=== PATIENT | female | born 1955 | race Caucasian/White ===

== ENCOUNTER → 2019-11-14 | Outpatient (CLI) | payer BC | END | disposition home or self-care (01) | CPT/HCPCS: 71270; Q9967 ==

== ENCOUNTER 2020-03-16 09:02 | Emergency (ER) | payer BC ==
--- NOTE | 2020-03-16 09:13 | ED ---
General Adult HPI - General Chief complaint: Extremity Problem,Nontraumatic Stated complaint: FB in foot Time Seen by Provider: 03/16/20 09:05 Source: patient, RN notes reviewed, old records reviewed Mode of arrival: ambulatory Limitations: no limitations - History of Present Illness Initial comments: This is a 65-year-old female who presents emergency department today thinking she has a foreign body in her first right toe patient states that she stepped on a needle today she thinks there may be a piece of the needle still in her toe. Patient states she had a tetanus shot within the last 2 years. Patient denies any other injury. - Related Data Home Medications Medication Instructions Recorded Confirmed Baclofen [Lioresal] 20 mg PO QID 06/05/15 03/16/20 Levothyroxine Sodium [Synthroid] 88 mcg PO DAILY 06/05/15 03/16/20 Lovastatin [Mevacor] 20 mg PO HS 06/05/15 03/16/20 Metoprolol Succinate (ER) [Toprol 100 mg PO HS 06/05/15 03/16/20 XL] Spironolactone 50 mg PO QAM 06/05/15 03/16/20 sulfaSALAzine [Azulfidine] 1,000 mg PO BID 06/05/15 03/16/20 Albuterol Sulfate [Ventolin HFA] 2 puff INHALATION RT-Q6H PRN 03/16/20 03/16/20 Budesonide/Formoterol Fumarate 2 puff INHALATION RT-BID 03/16/20 03/16/20 [Symbicort 160-4.5 Mcg Inhaler] Etanercept [Enbrel] 50 mg SQ FR 03/16/20 03/16/20 Losartan [Cozaar] 100 mg PO DAILY 03/16/20 03/16/20 Meloxicam [Mobic] 15 mg PO DAILY 03/16/20 03/16/20 Prednisolone Acetate/Pf 1 drop BOTH EYES DAILY PRN 03/16/20 03/16/20 [Prednisolone Acet 1% Eye Drop] SUMAtriptan SUCCINATE [Imitrex] 100 mg PO DAILY PRN 03/16/20 03/16/20 amLODIPine [Norvasc] 10 mg PO DAILY 03/16/20 03/16/20 Previous Rx's Medication Instructions Recorded Cephalexin [Keflex] 500 mg PO Q6HR #28 cap 03/16/20 Allergies Allergy/AdvReac Type Severity Reaction Status Date / Time antidepressants AdvReac seizures Uncoded 03/16/20 09:59 antiseizure meds AdvReac seizure Uncoded 03/16/20 09:59 Review of Systems ROS Statement: Those systems with pertinent positive or pertinent negative responses have been documented in the HPI. ROS Other: All systems not noted in ROS Statement are negative. Past Medical History Past Medical History: Asthma, Hyperlipidemia, Hypertension, Thyroid Disorder Additional Past Medical History / Comment(s): RECTAL BLEEDING, ANKYLOSING SPONDYLITIS, TRIGEMINAL NEURALGIA History of Any Multi-Drug Resistant Organisms: None Reported Past Surgical History: Orthopedic Surgery Additional Past Surgical History / Comment(s): FOOT SX Past Anesthesia/Blood Transfusion Reactions: No Reported Reaction Past Psychological History: No Psychological Hx Reported Smoking Status: Never smoker Past Alcohol Use History: Occasional Past Drug Use History: None Reported - Past Family History Mother Family Medical History: No Reported History General Exam - General Exam Comments Initial Comments: GENERAL Patient is well-developed and well-nourished. Patient is in mild distress. EYES Patient's pupils are equal and round. Extraocular motion is intact SKIN Unremarkable NEURO The patient is alert and oriented 3 PYSCH Patient has normal interpersonal interactions. MUSCULOSKELETAL Patient has a small puncture wound in the base of the plantar surface of the first right toe no foreign body can be seen Limitations: no limitations Course Vital Signs 03/16/20 09:05 Temperature 98.5 F Pulse Rate 63 Respiratory 20 Rate Blood Pressure 178/80 O2 Sat by Pulse 99 Oximetry Medical Decision Making - Medical Decision Making X-ray shows a foreign body. Looks like a needle. I numbed the patient's toe with 1% Xylocaine and immediately small incision and probed for the needle I was unsuccessful. I repeated his x-ray to see if the needle have moved it had not and at this point in time I made a decision to not probe any further because I had no success earlier. The patient's toe was wrapped up with some air saturation applied and she will follow-up with orthopedics. Disposition Clinical Impression: Foreign body of toe Disposition: HOME SELF-CARE Condition: Good Instructions (If sedation given, give patient instructions): Soft Tissue Foreign Body (ED) Prescriptions: Cephalexin [Keflex] 500 mg PO Q6HR #28 cap Is patient prescribed a controlled substance at d/c from ED?: No Referrals: Adonay Cervantes MD [Primary Care Provider] - 1-2 days Time of Disposition: 11:21
[2020-03-16] MEDS ORDERED: LIDOCAINE 1% INJ 10MG/ML (20 ML MDV) SQ ONE (09:54)
--- NOTE | 2020-03-16 10:06 | XR ---
EXAMINATION TYPE: XR toes RT DATE OF EXAM: 03/16/2020 COMPARISON: NONE HISTORY: Foreign body TECHNIQUE: 4 views of the soft tissues of the right great toe are submitted. FINDINGS: Metallic sewing needle foreign body is seen within the plantar soft tissues of the right gr eat toe. Distance from the skin is 3 mm. Informed body measures 2 cm in length. Severe degenerative c hange first metatarsophalangeal joint. IMPRESSION: Foreign body as above.
--- NOTE | 2020-03-16 11:05 | XR ---
EXAMINATION TYPE: XR toes RT DATE OF EXAM: 03/16/2020 COMPARISON: Examination from the same day. HISTORY: Radiopaque foreign body TECHNIQUE: 2 views of the great toe are submitted. FINDINGS: Radiopaque foreign body as described previously appears essentially unchanged. IMPRESSION: As above
[2020-03-16 11:38] VITALS: BP 145/63; PULSE 61; RESP 18; TEMP 97.8
== END 2020-03-16 11:35 | disposition home or self-care (01) ==
LOC: EC 09:02
DX: S91.131A Puncture wound without foreign body of right great toe without damage to nail, initial encounter (principal); J45.909 Unspecified asthma, uncomplicated; I10 Essential (primary) hypertension; E78.5 Hyperlipidemia, unspecified; E07.9 Disorder of thyroid, unspecified; Z79.890 Hormone replacement therapy; Z79.899 Other long term (current) drug therapy; Z79.51 Long term (current) use of inhaled steroids; Z79.1 Long term (current) use of non-steroidal anti-inflammatories (NSAID); Z88.8 Allergy status to other drugs, medicaments and biological substances; W45.8XXA Other foreign body or object entering through skin, initial encounter
CPT/HCPCS: 73660; 99284; 10120; J2001

== ENCOUNTER 2020-03-17 20:10 | Emergency (ER) | payer BC ==
[2020-03-17 20:32] VITALS: BP 189/75; PULSE 72; RESP 20; TEMP 98.6
[2020-03-17] MEDS ORDERED: KETOROLAC 30 MG/ML 1 ML VIAL IM STA (21:20)
[2020-03-17] MEDS ORDERED: HYDROcodone/APAP 5-325MG 1 EACH TAB PO STA (21:20)
[2020-03-17] MEDS ORDERED: ACET/COD 300 MG/30 MG STARTER PACK 6 TAB BTL PO STA (21:26)
--- NOTE | 2020-03-17 21:27 | ED ---
Skin/Abscess/FB HPI - General Chief complaint: Skin/Abscess/Foreign Body Stated complaint: foreign body in toe Time Seen by Provider: 03/17/20 21:12 Source: patient, family Mode of arrival: ambulatory Limitations: no limitations - History of Present Illness Initial comments: 65-year-old female patient presents to the emergency department today for evalua tion of her right great toe. Patient states yesterday morning she stepped on a needle which broke off in her toe. She was seen and evaluated in the emergency department by Dr. Bañuelos who did create a small incision and attempted to probe for the needle. He was unsuccessful removal so he did start her on antibiotics and discharged to follow-up with orthopedics. Patient states today the area is more swollen and painful. States it hurts to ambulate. She denies fever but states that she has been shaky and chilled throughout the day. States she feels unwell. Denies any numbness or tingling to the foot or toe. Patient denies any headache, neck pain, back pain, chest pain, shortness of breath, dizziness, weakness, abdominal pain, nausea, vomiting, or difficulties with bowel movements or urination. - Related Data Home Medications Medication Instructions Recorded Confirmed Baclofen [Lioresal] 20 mg PO QID 06/05/15 03/16/20 Levothyroxine Sodium [Synthroid] 88 mcg PO DAILY 06/05/15 03/16/20 Lovastatin [Mevacor] 20 mg PO HS 06/05/15 03/16/20 Metoprolol Succinate (ER) [Toprol 100 mg PO HS 06/05/15 03/16/20 XL] Spironolactone 50 mg PO QAM 06/05/15 03/16/20 sulfaSALAzine [Azulfidine] 1,000 mg PO BID 06/05/15 03/16/20 Albuterol Sulfate [Ventolin HFA] 2 puff INHALATION RT-Q6H PRN 03/16/20 03/16/20 Budesonide/Formoterol Fumarate 2 puff INHALATION RT-BID 03/16/20 03/16/20 [Symbicort 160-4.5 Mcg Inhaler] Etanercept [Enbrel] 50 mg SQ FR 03/16/20 03/16/20 Losartan [Cozaar] 100 mg PO DAILY 03/16/20 03/16/20 Meloxicam [Mobic] 15 mg PO DAILY 03/16/20 03/16/20 Prednisolone Acetate/Pf 1 drop BOTH EYES DAILY PRN 03/16/20 03/16/20 [Prednisolone Acet 1% Eye Drop] SUMAtriptan SUCCINATE [Imitrex] 100 mg PO DAILY PRN 03/16/20 03/16/20 amLODIPine [Norvasc] 10 mg PO DAILY 03/16/20 03/16/20 Previous Rx's Medication Instructions Recorded Cephalexin [Keflex] 500 mg PO Q6HR #28 cap 03/16/20 Allergies Allergy/AdvReac Type Severity Reaction Status Date / Time antidepressants AdvReac seizures Uncoded 03/17/20 20:32 antiseizure meds AdvReac seizure Uncoded 03/17/20 20:32 Review of Systems ROS Statement: Those systems with pertinent positive or pertinent negative responses have been documented in the HPI. ROS Other: All systems not noted in ROS Statement are negative. Past Medical History Past Medical History: Asthma, Hyperlipidemia, Hypertension, Thyroid Disorder Additional Past Medical History / Comment(s): RECTAL BLEEDING, ANKYLOSING SPONDYLITIS, TRIGEMINAL NEURALGIA History of Any Multi-Drug Resistant Organisms: None Reported Past Surgical History: Orthopedic Surgery Additional Past Surgical History / Comment(s): FOOT SX Past Anesthesia/Blood Transfusion Reactions: No Reported Reaction Past Psychological History: No Psychological Hx Reported Smoking Status: Never smoker Past Alcohol Use History: Occasional Past Drug Use History: None Reported - Past Family History Mother Family Medical History: No Reported History General Exam Limitations: no limitations General appearance: alert, in no apparent distress, other (This is a well- developed, well-nourished adult female patient in no acute distress. Vital signs upon presentation are temperature 98.6F, pulse 72, respirations 20, blood pressure 189/75, pulse ox 98% on room air.) Respiratory exam: Present: normal lung sounds bilaterally. Absent: respiratory distress, wheezes, rales, rhonchi, stridor Cardiovascular Exam: Present: regular rate, normal rhythm, normal heart sounds. Absent: systolic murmur, diastolic murmur, rubs, gallop, clicks Extremities exam: Present: full ROM, normal capillary refill, other (There is generalized swelling noted over the right great toe. There is a small incision noted to the plantar surface of the right great toe near the MTP joint. There is no surrounding erythema or drainage noted at this time. Temperature is equal to the left foot. Skin is otherwise pink, warm, dry. Cap refills less than 3 seconds. Pedal and posttibial pulses are 2+ and equal bilaterally.). Absent: normal inspection, tenderness, pedal edema, joint swelling, calf tenderness Neurological exam: Present: alert, oriented X3, CN II-XII intact Psychiatric exam: Present: normal affect, normal mood Skin exam: Present: warm, dry, intact, normal color. Absent: rash Course Vital Signs 03/17/20 20:28 Temperature 98.6 F Pulse Rate 72 Respiratory 20 Rate Blood Pressure 189/75 O2 Sat by Pulse 98 Oximetry Medical Decision Making - Medical Decision Making 65-year-old female patient presents to the emergency department today for evaluation of increased pain and swelling to the right great toe. Patient does have a needle foreign body noted on x-ray to the toe. There is no redness or drainage. She is afebrile. She is currently taking Keflex. Patient was hoping she did have the needle removed in the emergency department. I did explain that there was one previous attempt to remove the needle which was unsuccessful. Generally we would have follow-up with orthopedic specialty to evaluate and remove the foreign body. She is given pain medication and a post op shoe for comfort. She will be discharged to follow up with ortho on Thursday. She is instructed to continue the antibiotics. Return parameters were discussed in detail. She verbalizes understanding and agrees with this plan. Disposition Clinical Impression: Foreign body of skin of right great toe Disposition: HOME SELF-CARE Condition: Good Instructions (If sedation given, give patient instructions): Soft Tissue Foreign Body (ED) Additional Instructions: Continue antibiotics. Take medications for pain. Follow-up with migration specialist as soon as possible for further evaluation. Return to the emergency department immediately for any new, worsening, or concerning symptoms. Is patient prescribed a controlled substance at d/c from ED?: No Referrals: Adonay Cervantes MD [Primary Care Provider] - 1-2 days Luiz Zelaya MD [STAFF PHYSICIAN] - 1-2 days Time of Disposition: 21:27
== END 2020-03-17 21:46 | disposition home or self-care (01) ==
LOC: EC 20:10
DX: M79.5 Residual foreign body in soft tissue (principal); J45.909 Unspecified asthma, uncomplicated; E78.5 Hyperlipidemia, unspecified; I10 Essential (primary) hypertension; E07.9 Disorder of thyroid, unspecified; G50.0 Trigeminal neuralgia; Z79.51 Long term (current) use of inhaled steroids; Z79.890 Hormone replacement therapy; Z79.899 Other long term (current) drug therapy; Z79.1 Long term (current) use of non-steroidal anti-inflammatories (NSAID); Z88.8 Allergy status to other drugs, medicaments and biological substances
CPT/HCPCS: 96372; 99283; J1885

== ENCOUNTER 2020-11-12 01:45 | Emergency (ER) | payer BC ==
[2020-11-12 01:57] VITALS: TEMP 98.5
--- NOTE | 2020-11-12 02:57 | ED ---
Seizure HPI - General Chief Complaint: Seizure Stated Complaint: Seizure Time Seen by Provider: 11/12/20 02:37 Source: patient Mode of arrival: wheelchair Limitations: no limitations - History of Present Illness Initial Comments: 's patient is a 65-year-old woman who presents to be evaluated for which she suspects are seizures she is having. The patient states that the past 3 nights she has been having episodes of shaking that are lasting approximately 30 seconds as she is attempting to go to sleep. She complains of bilateral extremity shaking. The patient is aware of the episodes. There is no loss of consciousness, no loss of continence. The patient had been started on Leflunomide for , but did not tolerate that medication and was subsequently stopped. The patient's physician did give her cholestyramine to help purge her system of this medication. She states the cholestyramine has been causing a little bit of bloating. Patient notes that she had similar side effects with some anticonvulsant medicines that had been tried a number of years ago for trigeminal neuralgia. MD Complaint: possible seizure Onset/Timin -: days(s) - Related Data Home Medications Medication Instructions Recorded Confirmed Baclofen [Lioresal] 20 mg PO QID 06/05/15 03/16/20 Levothyroxine Sodium [Synthroid] 88 mcg PO DAILY 06/05/15 03/16/20 Lovastatin [Mevacor] 20 mg PO HS 06/05/15 03/16/20 Metoprolol Succinate (ER) [Toprol 100 mg PO HS 06/05/15 03/16/20 XL] Spironolactone 50 mg PO QAM 06/05/15 03/16/20 sulfaSALAzine [Azulfidine] 1,000 mg PO BID 06/05/15 03/16/20 Albuterol Sulfate [Ventolin HFA] 2 puff INHALATION RT-Q6H PRN 03/16/20 03/16/20 Budesonide/Formoterol Fumarate 2 puff INHALATION RT-BID 03/16/20 03/16/20 [Symbicort 160-4.5 Mcg Inhaler] Etanercept [Enbrel] 50 mg SQ FR 03/16/20 03/16/20 Losartan [Cozaar] 100 mg PO DAILY 03/16/20 03/16/20 Meloxicam [Mobic] 15 mg PO DAILY 03/16/20 03/16/20 Prednisolone Acetate/Pf 1 drop BOTH EYES DAILY PRN 03/16/20 03/16/20 [Prednisolone Acet 1% Eye Drop] SUMAtriptan SUCCINATE [Imitrex] 100 mg PO DAILY PRN 03/16/20 03/16/20 amLODIPine [Norvasc] 10 mg PO DAILY 03/16/20 03/16/20 Previous Rx's Medication Instructions Recorded Cephalexin [Keflex] 500 mg PO Q6HR #28 cap 03/16/20 diazePAM [Valium] 5 mg PO Q8HR PRN 3 Days #9 tab 11/12/20 Allergies Allergy/AdvReac Type Severity Reaction Status Date / Time antidepressants AdvReac seizures Uncoded 03/17/20 20:32 antiseizure meds AdvReac seizure Uncoded 03/17/20 20:32 Review of Systems ROS Statement: Those systems with pertinent positive or pertinent negative responses have been documented in the HPI. ROS Other: All systems not noted in ROS Statement are negative. Constitutional: Denies: fever, chills Respiratory: Denies: cough, dyspnea Cardiovascular: Denies: chest pain, palpitations Gastrointestinal: Denies: abdominal pain, vomiting, diarrhea, constipation Genitourinary: Denies: dysuria, hematuria Musculoskeletal: Denies: back pain Skin: Denies: rash Neurological: Reports: as per HPI, other. Denies: headache, weakness, numbness Past Medical History Past Medical History: Asthma, Hyperlipidemia, Hypertension, Thyroid Disorder Additional Past Medical History / Comment(s): RECTAL BLEEDING, ANKYLOSING SPONDYLITIS, TRIGEMINAL NEURALGIA History of Any Multi-Drug Resistant Organisms: None Reported Past Surgical History: Orthopedic Surgery Additional Past Surgical History / Comment(s): FOOT SX Past Anesthesia/Blood Transfusion Reactions: No Reported Reaction Past Psychological History: No Psychological Hx Reported Smoking Status: Never smoker Past Alcohol Use History: Occasional Past Drug Use History: None Reported - Past Family History Mother Family Medical History: No Reported History General Exam Limitations: no limitations General appearance: alert, in no apparent distress Head exam: Present: atraumatic, normocephalic Eye exam: Present: normal appearance. Absent: scleral icterus, conjunctival injection ENT exam: Present: normal oropharynx Neck exam: Present: normal inspection, full ROM. Absent: tenderness, meningismus, lymphadenopathy Respiratory exam: Present: normal lung sounds bilaterally. Absent: respiratory distress, wheezes, rales, rhonchi, stridor Cardiovascular Exam: Present: regular rate, normal rhythm, normal heart sounds. Absent: systolic murmur, diastolic murmur, rubs, gallop GI/Abdominal exam: Present: soft. Absent: distended, tenderness, guarding, rebound, rigid, mass Extremities exam: Present: normal inspection, normal capillary refill. Absent: pedal edema, calf tenderness Back exam: Present: normal inspection. Absent: CVA tenderness (R), CVA tenderness (L) Neurological exam: Present: alert, oriented X3, CN II-XII intact. Absent: motor sensory deficit Skin exam: Present: warm, dry, intact, normal color. Absent: rash Course Vital Signs 11/12/20 11/12/20 11/12/20 01:52 03:14 04:14 Temperature 98.5 F Pulse Rate 66 62 63 Respiratory 18 20 18 Rate Blood Pressure 188/84 164/91 144/75 O2 Sat by Pulse 99 97 97 Oximetry Medical Decision Making - Lab Data Result diagrams: 11/12/20 02:44 11/12/20 02:44 Lab Results 11/12/20 11/12/20 11/12/20 Range/Units 02:44 02:44 02:44 WBC 7.4 (3.8-10.6) k/uL RBC 4.76 (3.80-5.40) m/uL Hgb 15.0 (11.4-16.0) gm/dL Hct 43.5 (34.0-46.0) % MCV 91.4 (80.0-100.0) fL MCH 31.5 (25.0-35.0) pg MCHC 34.5 (31.0-37.0) g/dL RDW 11.8 (11.5-15.5) % Plt Count 187 (150-450) k/uL MPV 7.3 Neutrophils % 39 % Lymphocytes % 46 % Monocytes % 9 % Eosinophils % 2 % Basophils % 1 % Neutrophils # 2.9 (1.3-7.7) k/uL Lymphocytes # 3.4 (1.0-4.8) k/uL Monocytes # 0.7 (0-1.0) k/uL Eosinophils # 0.1 (0-0.7) k/uL Basophils # 0.1 (0-0.2) k/uL Sodium 139 (137-145) mmol/L Potassium 4.3 (3.5-5.1) mmol/L Chloride 108 H (98-107) mmol/L Carbon Dioxide 23 (22-30) mmol/L Anion Gap 8 mmol/L BUN 11 (7-17) mg/dL Creatinine 0.88 (0.52-1.04) mg/dL Est GFR (CKD-EPI)AfAm 81 (>60 ml/min/1.73 sqM) Est GFR (CKD-EPI)NonAf 71 (>60 ml/min/1.73 sqM) Glucose 115 H (74-99) mg/dL Calcium 9.7 (8.4-10.2) mg/dL Total Bilirubin 0.5 (0.2-1.3) mg/dL AST 28 (14-36) U/L ALT 31 (4-34) U/L Alkaline Phosphatase 49 (38-126) U/L Total Protein 6.5 (6.3-8.2) g/dL Albumin 4.2 (3.5-5.0) g/dL Urine Color Light Yellow Urine Appearance Clear (Clear) Urine pH 5.5 (5.0-8.0) Ur Specific [place] 1.005 (1.001-1.035) Urine Protein Negative (Negative) Urine Glucose (UA) Negative (Negative) Urine Ketones Negative (Negative) Urine Blood Negative (Negative) Urine Nitrite Negative (Negative) Urine Bilirubin Negative (Negative) Urine Urobilinogen <2.0 (<2.0) mg/dL Ur Leukocyte Esterase Negative (Negative) Serum Alcohol <10 mg/dL - EKG Data -: EKG Interpreted by [place] EKG shows normal: sinus rhythm, axis (Normal), intervals (Normal), QRS complexes (Normal), ST-T waves (Normal) Rate: normal (Rate 67 bpm) Interpretation: normal EKG Disposition Clinical Impression: Medication side effect Disposition: HOME SELF-CARE Condition: Good Instructions (If sedation given, give patient instructions): Adverse Drug Reaction (ED) Prescriptions: diazePAM [Valium] 5 mg PO Q8HR PRN 3 Days #9 tab PRN Reason: Seizures Is patient prescribed a controlled substance at d/c from ED?: No Referrals: Adonay Cervantes MD [Primary Care Provider] - 1-2 days Dixie Segovia MD [REFERRING] - 1-2 days
[2020-11-12 03:04] LABS: Basophils # (A) 0.1 k/uL (0-0.2); Basophils % (A) 1 %; Eosinophils # (A) 0.1 k/uL (0-0.7); Eosinophils % (A) 2 %; HCT 43.5 % (34.0-46.0); Lymphocytes # (A) 3.4 k/uL (1.0-4.8); Lymphocytes % (A) 46 %; MCH 31.5 pg (25.0-35.0); MCHC 34.5 g/dL (31.0-37.0); MCV 91.4 fL (80.0-100.0); Mean Platelet Volume 7.3; Monocytes # (A) 0.7 k/uL (0-1.0); Monocytes % (A) 9 %; Neutrophils # (A) 2.9 k/uL (1.3-7.7); Neutrophils % (A) 39 %; Platelet Count 187 k/uL (150-450); RBC 4.76 m/uL (3.80-5.40); RDW 11.8 % (11.5-15.5); WBC 7.4 k/uL (3.8-10.6)
[2020-11-12 03:24] LABS: ALT 31 U/L (4-34); AST 28 U/L (14-36); African American GFR (CKD) 81 (>60 ml/min/1.73 sqM); Albumin 4.2 g/dL (3.5-5.0); Alcohol <10 mg/dL; Alkaline Phosphatase 49 U/L (38-126); Anion Gap 8 mmol/L; Blood Urea Nitrogen 11 mg/dL (7-17); Calcium 9.7 mg/dL (8.4-10.2); Carbon Dioxide 23 mmol/L (22-30); Chloride 108 mmol/L (98-107); Glucose 115 mg/dL (74-99); Non-African American GFR(CKD) 71 (>60 ml/min/1.73 sqM); Potassium 4.3 mmol/L (3.5-5.1); Sodium 139 mmol/L (137-145); Total Bilirubin 0.5 mg/dL (0.2-1.3); Total Protein 6.5 g/dL (6.3-8.2)
[2020-11-12 03:30] LABS: Appearance,Urine Clear (Clear); Bilirubin,Urine Negative (Negative); Blood,Urine Negative (Negative); Color,Urine Light Yellow; Glucose,Urine (UA) Negative (Negative); Ketones,Urine Negative (Negative); Leukocyte Esterase,Urine Negative (Negative); Nitrite,Urine Negative (Negative); PH, Urine 5.5 (5.0-8.0); Protein,Urine Negative (Negative); Specific Gravity,Urine 1.005 (1.001-1.035); Urobilinogen,Urine <2.0 mg/dL (<2.0)
[2020-11-12] MEDS ORDERED: diazePAM 5 MG TAB PO STA (04:22)
[2020-11-12 04:57] VITALS: BP 152/70; PULSE 68; RESP 16
== END 2020-11-12 04:56 | disposition home or self-care (01) ==
LOC: EC 01:45
DX: J45.909 Unspecified asthma, uncomplicated (principal); R50.9 Fever, unspecified; E78.5 Hyperlipidemia, unspecified; I10 Essential (primary) hypertension; E07.9 Disorder of thyroid, unspecified; T46.6X5A Adverse effect of antihyperlipidemic and antiarteriosclerotic drugs, initial encounter
CPT/HCPCS: 36415; 80053; 80320; 81003; 85025; 93005; 99284

== ENCOUNTER 2020-11-12 16:24 | Observation (INO) | payer BC ==
[2020-11-12] MEDS ORDERED: LORazepam 2 MG/ML INJ IV STA ×2 (16:51→19:32)
--- NOTE | 2020-11-12 17:19 | ED ---
General Adult HPI - General Chief complaint: Seizure Stated complaint: seizure-revisit Time Seen by Provider: 11/12/20 16:46 Source: patient Mode of arrival: ambulatory Limitations: no limitations - History of Present Illness Initial comments: Dictation was produced using [employer] dictation software. please excuse any grammatical, word or spelling errors. This patient was cared for during a federal and state declared state of emergency secondary to Covid 19 Chief Complaint: 65-year-old female presents emergency department for concerns of seizure. History of Present Illness: 65-year-old female she was evaluated here in the emergency department earlier this morning. She was having the shaking episodes. Patient reports that she has a history of seizures. She has a history of trigeminal neuralgia several years ago that was treated with antiseizure medications. States that she first noted that she was having these abnormal sh aking episodes. Patient has history of ankylosing spondylitis. She recently had medication changes. When she had his medication changes her shaking episodes began again. is at bedside reports that patient is fully conscious during these episodes. She has uncontrollable shaking that don't allow her to sleep. She is here in emergency department this morning she was evaluated. She had some Valium and went home and was able to sleep. States that prior to arrival she had recurrence of her symptoms. Patient has been suffering from insomnia for the last several weeks. The ROS documented in this emergency department record has been reviewed and confirmed by me. Those systems with pertinent positive or negative responses have been documented in the HPI. All other systems are other negative and/or noncontributory. PHYSICAL EXAM: General Impression: Alert and oriented x3, not in acute distress HEENT: Normocephalic atraumatic, extra-ocular movements intact, pupils equal and reactive to light bilaterally, mucous membranes moist. Cardiovascular: Heart regular rate and rhythm Chest: Able to complete full sentences, no retractions, no tachypnea Abdomen: abdomen soft, non-tender, non-distended, no organomegaly Musculoskeletal: Pulses present and equal in all extremities, no peripheral edema Motor: no focal deficits noted Neurological: CN II-XII grossly intact, no focal motor or sensory deficits noted Skin: Intact with no visualized rashes Psych: Normal affect and mood ED course: 65-year-old female with shaking episodes. Patient and reports that there is worried that she may have recurrence of seizures. Patient denies ever having had an EEG done in the past. States she was treated with antiseizure medications for trigeminal neurology. She had one of these shaking episodes in the waiting room. She was fully conscious according to the nurse. Vital signs upon arrival are within acceptable limits. Laboratory evaluation obtained. CBC, metabolic panel is unremarkable. Computed tomography scan of brain is unremarkable. Patient be admitted with neurology consultation. Patient clinically does not sound like she is having a generalized tonic clonic seizure however there is perhaps possibility of petit seizures. Patient be admitted to Dr. Red. EKG interpretation: Ventricular rate 86. No IN prolongation, no QTC prolongation, no ST or T-wave changes noted. EKG compared to 11/12/2020 showing no changes. Overall, this EKG is unremarkable - Related Data Home Medications Medication Instructions Recorded Confirmed Levothyroxine Sodium [Synthroid] 88 mcg PO DAILY 06/05/15 11/12/20 Lovastatin [Mevacor] 20 mg PO HS 06/05/15 11/12/20 Metoprolol Succinate (ER) [Toprol 100 mg PO DAILY 06/05/15 11/12/20 XL] Spironolactone 50 mg PO QAM 06/05/15 11/12/20 Albuterol Sulfate [Ventolin HFA] 2 puff INHALATION RT-Q6H PRN 03/16/20 11/12/20 Etanercept [Enbrel] 50 mg SQ FR 03/16/20 11/12/20 Meloxicam [Mobic] 15 mg PO DAILY PRN 03/16/20 11/12/20 amLODIPine [Norvasc] 10 mg PO DAILY 03/16/20 11/12/20 Budesonide/Glycopyr/Formoterol 2 puff INHALATION RT-BID 11/12/20 11/12/20 [Breztri Aerosphere Inhaler] Cholestyramine (with Sugar) 8 gm PO TID 11/12/20 11/12/20 [Cholestyramine Packet] Rizatriptan Benzoate [Rizatriptan] 10 mg PO DAILY PRN 11/12/20 11/12/20 Previous Rx's Medication Instructions Recorded diazePAM [Valium] 5 mg PO Q8HR PRN 3 Days #9 tab 11/12/20 Allergies Allergy/AdvReac Type Severity Reaction Status Date / Time leflunomide AdvReac seizure Verified 11/12/20 18:25 antidepressants AdvReac seizures Uncoded 11/12/20 16:28 antiseizure meds AdvReac seizure Uncoded 11/12/20 16:28 Review of Systems ROS Statement: Those systems with pertinent positive or pertinent negative responses have been documented in the HPI. ROS Other: All systems not noted in ROS Statement are negative. Past Medical History Past Medical History: Asthma, Hyperlipidemia, Hypertension, Seizure Disorder, Thyroid Disorder Additional Past Medical History / Comment(s): RECTAL BLEEDING, ANKYLOSING SPONDYLITIS, TRIGEMINAL NEURALGIA History of Any Multi-Drug Resistant Organisms: None Reported Past Surgical History: Orthopedic Surgery Additional Past Surgical History / Comment(s): FOOT SX Past Anesthesia/Blood Transfusion Reactions: No Reported Reaction Past Psychological History: No Psychological Hx Reported Smoking Status: Never smoker Past Alcohol Use History: Occasional Past Drug Use History: None Reported - Past Family History Mother Family Medical History: No Reported History General Exam Limitations: no limitations Course Vital Signs 11/12/20 16:25 Temperature 98.4 F Pulse Rate 84 Respiratory 18 Rate Blood Pressure 189/96 O2 Sat by Pulse 98 Oximetry Medical Decision Making - Lab Data Result diagrams: 11/12/20 17:08 11/12/20 17:08 Lab Results 11/12/20 11/12/20 Range/Units 17:08 17:08 WBC 9.8 (3.8-10.6) k/uL RBC 4.99 (3.80-5.40) m/uL Hgb 16.0 (11.4-16.0) gm/dL Hct 45.8 (34.0-46.0) % MCV 91.8 (80.0-100.0) fL MCH 32.2 (25.0-35.0) pg MCHC 35.1 (31.0-37.0) g/dL RDW 11.8 (11.5-15.5) % Plt Count 240 (150-450) k/uL MPV 8.1 Neutrophils % 42 % Lymphocytes % 45 % Monocytes % 8 % Eosinophils % 1 % Basophils % 1 % Neutrophils # 4.1 (1.3-7.7) k/uL Lymphocytes # 4.4 (1.0-4.8) k/uL Monocytes # 0.8 (0-1.0) k/uL Eosinophils # 0.1 (0-0.7) k/uL Basophils # 0.1 (0-0.2) k/uL Sodium 138 (137-145) mmol/L Potassium 4.6 (3.5-5.1) mmol/L Chloride 105 (98-107) mmol/L Carbon Dioxide 21 L (22-30) mmol/L Anion Gap 12 mmol/L BUN 11 (7-17) mg/dL Creatinine 0.99 (0.52-1.04) mg/dL Est GFR (CKD-EPI)AfAm 70 (>60 ml/min/1.73 sqM) Est GFR (CKD-EPI)NonAf 61 (>60 ml/min/1.73 sqM) Glucose 133 H (74-99) mg/dL Calcium 10.1 (8.4-10.2) mg/dL Magnesium 1.9 (1.6-2.3) mg/dL Disposition Clinical Impression: Seizure Disposition: ADMITTED IP TO THIS HOSP Condition: Fair Referrals: Adonay Cervantes MD [Primary Care Provider] - 1-2 days Decision Time: 18:31
[2020-11-12 17:27] LABS: Basophils # (A) 0.1 k/uL (0-0.2); Basophils % (A) 1 %; Eosinophils # (A) 0.1 k/uL (0-0.7); Eosinophils % (A) 1 %; HCT 45.8 % (34.0-46.0); Lymphocytes # (A) 4.4 k/uL (1.0-4.8); Lymphocytes % (A) 45 %; MCH 32.2 pg (25.0-35.0); MCHC 35.1 g/dL (31.0-37.0); MCV 91.8 fL (80.0-100.0); Mean Platelet Volume 8.1; Monocytes # (A) 0.8 k/uL (0-1.0); Monocytes % (A) 8 %; Neutrophils # (A) 4.1 k/uL (1.3-7.7); Neutrophils % (A) 42 %; Platelet Count 240 k/uL (150-450); RBC 4.99 m/uL (3.80-5.40); RDW 11.8 % (11.5-15.5); WBC 9.8 k/uL (3.8-10.6)
[2020-11-12 17:42] LABS: Calcium 10.1 mg/dL (8.4-10.2); Magnesium 1.9 mg/dL (1.6-2.3); Potassium 4.6 mmol/L (3.5-5.1)
--- NOTE | 2020-11-12 18:03 | CT ---
EXAMINATION TYPE: CT brain wo con DATE OF EXAM: 11/12/2020 COMPARISON: None HISTORY: Seizure CT DLP: 1052.4 mGycm Automated exposure control for dose reduction was used. Exam performed without contrast. Ventricles have normal size. There is no mass effect nor midline shift. There is no sign of intracran ial hemorrhage. There is no evidence of cerebral edema. The calvarium is intact. The skull base is in tact. IMPRESSION: Negative unenhanced head CT scan.
[2020-11-12] MEDS ORDERED: ACETAMINOPHEN TAB 325 MG TAB PO PRN (18:28)
[2020-11-12] MEDS ORDERED: NALOXONE 0.4 MG/ML 1 ML VIAL IV PRN (18:28)
[2020-11-12] MEDS ORDERED: SODIUM CHLORIDE 0.9% 1,000 ML IV SCH (18:30)
[2020-11-12] MEDS: LORazepam 2 MG/ML INJ IV PRN ×2 (19:29→23:00)
[2020-11-12] MEDS ORDERED: levETIRAcetam 500 MG TAB PO STA ×2 (23:24→23:45)
[2020-11-13] MEDS ORDERED: levETIRAcetam 500 MG TAB PO SCH (09:00)
--- NOTE | 2020-11-13 09:00 | P.CNNES ---
History of Present Illness Consult date: 11/13/20 Requesting physician: Henrique Gilliland Reason for Consult: suspected seizure History of Present Illness: This is a 65-year-old women with medical history of trigeminal neuralgia, ankylosing spondylitis hyperlipidemia, hypertension and hypothyroidism that presented emergency department on 11/12/2020 for concern of seizure. Patient stated that the last 3 weeks she's been having shaking of her whole body since she was placed on Flunamide about 3 weeks ago. She said her shake in the last about 23 seconds and mostly to happen at night and she said that she could not suppress to the Center whole body shaking movement. She denies any loss of consciousness with these episodes, urinary or bowel incontinence she denies any auras prior to episodes. She can have the couple episodes at night. She said that that she had similar episodes about the 15 years ago when the patient was being managed for her trigeminal neuralgia over the right side of the face and that started after she was on Topamax and Lyrica and at that time she was seeing a neurologist (Dr. Carr) and again as mentioned that she said that she was nguyen ving the whole body shaking. She said that that these episodes were exactly the same as recurrent episodes as she had MRI the brain and was told she had some lesions likely from her migraine but other than that was normal. She is not sure if he she had an EEG or not in the past. I asked her if the neurologist felt those were seizures and she stated that that he didn't mention anything about seizures. She said her episodes that 15 years ago lasted the for 3-4 weeks and that she hasn't had any episodes until the last 3 weeks at. She does feel anxious. She has been taking Valium at nighttime recently which will help her with the shaking episodes as well help or sleep. She is currently not following up with a neurologist. It is mentioned in the medical history in our record that she has a seizures but it seems that the patient that is telling physicians that she has seizures but there is no official diagnosis. Otherwise the patient is not on any antiepileptic drug other than Valium PRN that was prescribed recently. Of note Flunamide was discontinued this past Thursday. Patient home medication is Valium 5 mg 1 tablet every hours as needed. She is also on Etanercept for ankylosing spondylitis. Workup in our facility consisted of: CT of the head is reported as negative unenhanced head CT. White blood cell is 9.8. Which is normal. Sodium is 138. Calcium is 10.1 which is normal. Magnesium is 1.9 which is normal. Serum glucose is 133. Matson virus PCR was not detected. In the ED the patient got 1 mg of Ativan was ordered at 1651 and another one at 1932 on 11/12/2020. The ED called me about the patient on 11/12/2020 around 11ishpm and notify me that the patient had generalized body shaking lasting close to 20 seconds but would not lose consciousness and had couple episodes and was concerned about seizure. I asked them to be loaded with Keppra 1500 mg (23:51) then the was started on Keppra 500 mg 1 tablet twice a day. Review of Systems Review of system: The 12 point system was reviewed and apparent positive and negative per HPI. Past Medical History Past Medical History: Asthma, Hyperlipidemia, Hypertension, Seizure Disorder, Thyroid Disorder Additional Past Medical History / Comment(s): RECTAL BLEEDING, ANKYLOSING SPONDYLITIS, TRIGEMINAL NEURALGIA History of Any Multi-Drug Resistant Organisms: None Reported Past Surgical History: Orthopedic Surgery Additional Past Surgical History / Comment(s): FOOT SX Past Anesthesia/Blood Transfusion Reactions: No Reported Reaction Past Psychological History: No Psychological Hx Reported Smoking Status: Never smoker Past Alcohol Use History: Occasional Past Drug Use History: None Reported - Past Family History Mother Family Medical History: No Reported History Father Family Medical History: COPD, Hypertension, Myocardial Infarction ([place]) Additional Family Medical History / Comment(s): ankylosing spondilitis Medications and Allergies Home Medications Medication Instructions Recorded Confirmed Type Levothyroxine Sodium [Synthroid] 88 mcg PO DAILY 06/05/15 11/12/20 History Lovastatin [Mevacor] 20 mg PO HS 06/05/15 11/12/20 History Metoprolol Succinate (ER) [Toprol 100 mg PO DAILY 06/05/15 11/12/20 History XL] Spironolactone 50 mg PO QAM 06/05/15 11/12/20 History Albuterol Sulfate [Ventolin HFA] 2 puff INHALATION RT-Q6H PRN 03/16/20 11/12/20 History Etanercept [Enbrel] 50 mg SQ FR 03/16/20 11/12/20 History Meloxicam [Mobic] 15 mg PO DAILY PRN 03/16/20 11/12/20 History amLODIPine [Norvasc] 10 mg PO DAILY 03/16/20 11/12/20 History Budesonide/Glycopyr/Formoterol 2 puff INHALATION RT-BID 11/12/20 11/12/20 History [Breztri Aerosphere Inhaler] Cholestyramine (with Sugar) 8 gm PO TID 11/12/20 11/12/20 History [Cholestyramine Packet] Rizatriptan Benzoate [Rizatriptan] 10 mg PO DAILY PRN 11/12/20 11/12/20 History diazePAM [Valium] 5 mg PO Q8HR PRN 3 Days #9 tab 11/12/20 11/12/20 Rx Allergies Allergy/AdvReac Type Severity Reaction Status Date / Time leflunomide AdvReac seizure Verified 11/12/20 18:25 Milk Containing Products AdvReac Diarrhea Verified 11/13/20 09:20 [Dairy] wheat AdvReac Abdominal Verified 11/13/20 09:20 Pain antidepressants AdvReac seizures Uncoded 11/12/20 16:28 antiseizure meds AdvReac seizure Uncoded 11/12/20 16:28 Physical Examination - Vital Signs Vital Signs: Vital Signs Temp Pulse Resp BP Pulse Ox 11/13/20 06:52 77 18 162/90 96 11/13/20 04:00 98.6 F 85 18 144/90 97 11/12/20 23:41 78 20 146/83 95 11/12/20 23:00 80 18 150/82 98 11/12/20 20:00 78 20 137/87 98 11/12/20 18:37 74 18 157/84 98 11/12/20 16:25 98.4 F 84 18 189/96 98 Intake and Output 11/12/20 11/13/20 11/13/20 22:59 06:59 14:59 Other: Weight 81.647 kg GENERAL: The patient is lying in bed and is not in acute distress. CHEST: The heart rate is regular rate rhythm. No murmurs to auscultation. No carotid bruit bilaterally. LUNG: Clear to auscultation bilaterally no wheezing noted throughout. Not labored breathing. ABDOMEN/GI: Bowel sounds present in all 4 quadrants. No tenderness to palpation throughout. NEUROLOGICAL: Higher mental function: The patient is awake, alert, oriented to self, place and time. Patient is following commands. No aphasia and no neglect. Cranial nerves: The pupils are round, equal and reactive to light and accommodation. Visual romano are full to confrontation throughout. Extraocular movement is intact no nystagmus is noted. Facial sensation is normal to touch throughout. The facial strength is normal throughout. Hearing is normal bilaterally to hand rub. Tongue is midline and moved [id number] without any difficulty. No dysarthria is noted. Shoulder shrug is normal bilaterally. Motor: Gait is deferred. The strength is 4+ over 5 throughout and limited due to effort related. Normal tone and bulk. Cerebellum: Normal finger to nose bilaterally. Sensation: Sensation is normal to touch throughout. Reflexes (right/left): 2+ throughout. Plantars are downgoing bilaterally. Results - Laboratory Findings CBC and BMP: 11/12/20 17:08 11/12/20 17:08 Abnormal Lab Findings: Abnormal Labs 11/12/20 17:08 Carbon Dioxide 21 L Glucose 133 H Assessment and Plan Assessment: This is a 65-year-old women that presented with the generalized body shaking without loss of consciousness, tongue bite, urinary or bowel incontinence and had a couple episodes. States happens mostly at night time in last 3 weeks and lasting 20-30 seconds. She had similar episodes about 15 years ago then resolved after 3-4 weeks. Whole body shaking. From history and EEG they are non-epileptic in nature. Anxiety ?Reported history of seizure (but that is being relayed by patient but no official diagnosis). History of trigeminal neuralgia Ankles and spondylitis Hyperlipidemia Hypertension Hypothyroidism Plan: CT of the head is reported as negative unenhanced head CT. Routine EEG the pre-delgado report: Is a normal routine EEG. Patient had whole body shaking and had shaking that was non-rhythmic without EEG correlate and right after the episode immediately she was responded to the tower technician. There are no focal slowing, I perform discharges or seizure on the EEG. Excessive fast activity is likely due to medication effect. Keppra 500 mg 1 tablet twice a day is discontinued. I recommend the long-term EEG or an epilepsy monitoring unit study as an outpatient so we can capture more episode since there some cases where patient truly have epilepsy in patient that has psychogenic nonepilepsy seizure. I ordered TSH level: 1.27 (normal). Patient home medication is Valium 5 mg 1 tablet every hours as needed. We'll defer the rest of the medical management to the primary team. Recommend psychiatry consultation as well. Upon discharge the patient the needs to follow-up with a neurologist within 1-2 weeks. UPDATE: Upon seeing the patient again later in the afternoon and the was at bedside and he spoke to me personally outside and he stated that the last 1 year and the patient has been having anxiety because of her multiple medical problems as well as the having some problems with her daughter in the last 1 year but hasn't gotten worse as well as some other family problems that is r emote. The patient needs to follow-up with a neurologist as well as psychiatrist as an outpatient. I notified the patient and her that I recommend possibly getting a longer term EEG as an outpatient to capture more of of the episodes to rule out epilepsy. The plan is discussed with the patient's nurse. There is no further work-up needed at this time. Neurology will sign off. Please reconsult if needed. Thank you for the consultation Fer Nguyễn MD Neuro hospitalist Time with Patient: Greater than 30
[2020-11-13 09:39] VITALS: RESP 18
[2020-11-13] MEDS ORDERED: NON FORMULARY DRUG (Budesonide/Glycopyr/Formoterol [Breztri Aerosphere Inhaler] 10.7 GM Hf INHALATION SCH (10:13)
[2020-11-13] MEDS ORDERED: ALBUTEROL HFA INHALER INHALATION PRN (10:13)
[2020-11-13] MEDS ORDERED: SUMAtriptan succinate 50 MG TAB PO PRN (10:13)
[2020-11-13] MEDS ORDERED: LEVOTHYROXINE 88 MCG TAB PO SCH (10:15)
[2020-11-13] MEDS ORDERED: MELOXICAM 7.5 MG TAB PO PRN (10:15)
[2020-11-13] MEDS ORDERED: SPIRONOLACTONE 25 MG TAB PO SCH (10:15)
[2020-11-13] MEDS ORDERED: METOPROLOL SUCCINATE (ER) 100 MG TAB.ER.24H PO SCH (10:15)
[2020-11-13] MEDS ORDERED: amLODIPine 10 MG TAB PO SCH (10:15)
[2020-11-13] MEDS: CHOLESTYRAMINE (WITH SUGAR) 4 GM PACKET PO SCH ×2 (10:54→16:24)
[2020-11-13 14:15] VITALS: BP 146/57; PULSE 76; TEMP 97.5
--- NOTE | 2020-11-13 18:13 | P.HPIM ---
History of Present Illness H&P Date: 11/13/20 Chief Complaint: Shakiness History of presenting complaint: This is a pleasant 65-year-old patient Dr. Cervantes. Chronic stable medical conditions include asthma, hyperlipidemia, hypertension, hypothyroid, ankylosing spondylitis, trigeminal neuralgia in the past. About 3 weeks ago because of the short supply as sulfasalazine seems changeover to leflunomide. Since then she's been noticing various symptoms including having some nausea some heartburn weakness shakiness sometimes a whole body shakes. It is become more frequent the last few days. She states about 15 years ago she trigeminal neuralgia and she was treated with Topamax and Lyrica she possible had seizures that time those medications which discontinued his admitted for the same. Patient did state that she notices that when she is trying to sleep that she start shaking more. His most loss of control of bladder or tongue biting. She does not lose consciousness. Neurology was consulted. Review of systems: GEN.: None EYES: None HEENT: None NECK: None RESPIRATORY: None CARDIOVASCULAR: None GASTROINTESTINAL: None GENITOURINARY: None MUSCULOSKELETAL: None LYMPHATICS: None HEMATOLOGICAL: None PSYCHIATRY: None NEUROLOGICAL: As above Past medical history to include: Asthma, hypertension, hyperlipidemia, seizure disorder, hypothyroid, ankylosing spondylitis, trigeminal neuralgia Social history: . Anxiety due to her physical problems. Does not drive anymore. No smoking. Alcohol occasionally. Physical examination: VITAL SIGNS: 98.4, 74, 18, 157/84, 98% on room air GENERAL: BMI 29.1, laying in bed, awake tired. EYES: Pupils equal. Conjunctiva normal. HEENT: External appearance of nose and ears normal, oral cavity grossly normal. NECK: JVD not raised; masses not palpable. HEART: First and second heart sounds are normal; no edema. LUNGS: Respiratory rate normal; clear to auscultation. ABDOMEN: Soft, nontender, liver spleen not palpable, no masses palpable. PSYCH: [Alert and oriented x3; mood and affect slightly anxious l. NEUROLOGICAL: Cranial nerves grossly intact; no facial asymmetry, power and sensation grossly intact. LYMPHATICS: No lymph nodes palpable in the axilla and neck INVESTIGATIONS, reviewed in the clinical context: WBC 9.8 hemoglobin 16 platelets 240 potassium 4.6 creatinine 0.99 TSH 1.2 potassium 10.1 and magnesium 1.9 Coronavirus [PCL]-not detected EKG tracing personally reviewed by me-normal sinus rhythm Computed tomography scan of the brain without contrast-negative Assessment and plan: -This is a patient who presents with what she described as generalized body shaking since she started on Leflunamide about 3 weeks ago. At that also associated symptoms of nausea heartburn feeling weak. Patient been rather anxious. Patient does state having possible seizures over 15 years ago when treated with Topamax and that a cuff for her trigeminal neuralgia. Neurology was consulted. Seizure precautions. -Mild persistent asthma ; use albuterol when necessary. And also to useBrezti- inhaler -Hyperlipidemia, continue Mevacor -Essential hypertension, continue with Toprol-XL and Norvasc -Hypothyroid continue with Synthroid Care was discussed with the patient. Home medications reviewed. Neurology consulted. Seizure precautions. EEG ordered Past Medical History Past Medical History: Asthma, Hyperlipidemia, Hypertension, Seizure Disorder, Thyroid Disorder Additional Past Medical History / Comment(s): RECTAL BLEEDING, ANKYLOSING SPONDYLITIS, TRIGEMINAL NEURALGIA History of Any Multi-Drug Resistant Organisms: None Reported Past Surgical History: Orthopedic Surgery Additional Past Surgical History / Comment(s): FOOT SX Past Anesthesia/Blood Transfusion Reactions: No Reported Reaction Past Psychological History: No Psychological Hx Reported Smoking Status: Never smoker Past Alcohol Use History: Occasional Past Drug Use History: None Reported - Past Family History Father Family Medical History: COPD, Hypertension, Myocardial Infarction ([place]) Additional Family Medical History / Comment(s): ankylosing spondilitis Mother Family Medical History: No Reported History Additional Family Medical History / Comment(s): 3 vessel CABG, vertigo Medications and Allergies Home Medications Medication Instructions Recorded Confirmed Type Levothyroxine Sodium [Synthroid] 88 mcg PO DAILY 06/05/15 11/12/20 History Lovastatin [Mevacor] 20 mg PO HS 06/05/15 11/12/20 History Metoprolol Succinate (ER) [Toprol 100 mg PO DAILY 06/05/15 11/12/20 History XL] Spironolactone 50 mg PO QAM 06/05/15 11/12/20 History Albuterol Sulfate [Ventolin HFA] 2 puff INHALATION RT-Q6H PRN 03/16/20 11/12/20 History Etanercept [Enbrel] 50 mg SQ FR 03/16/20 11/12/20 History Meloxicam [Mobic] 15 mg PO DAILY PRN 03/16/20 11/12/20 History amLODIPine [Norvasc] 10 mg PO DAILY 03/16/20 11/12/20 History Budesonide/Glycopyr/Formoterol 2 puff INHALATION RT-BID 11/12/20 11/12/20 H istory [Breztri Aerosphere Inhaler] Cholestyramine (with Sugar) 8 gm PO TID 11/12/20 11/12/20 History [Cholestyramine Packet] Rizatriptan Benzoate [Rizatriptan] 10 mg PO DAILY PRN 11/12/20 11/12/20 History diazePAM [Valium] 5 mg PO Q8HR PRN 3 Days #9 tab 11/12/20 11/12/20 Rx Allergies Allergy/AdvReac Type Severity Reaction Status Date / Time leflunomide AdvReac seizure Verified 11/12/20 18:25 Milk Containing Products AdvReac Diarrhea Verified 11/13/20 09:20 [Dairy] wheat AdvReac Abdominal Verified 11/13/20 09:20 Pain antidepressants AdvReac seizures Uncoded 11/12/20 16:28 antiseizure meds AdvReac seizure Uncoded 11/12/20 16:28 Physical Exam Vitals: Vital Signs Temp Pulse Pulse Resp BP BP BP 11/13/20 14:02 97.5 F L 76 18 146/57 11/13/20 13:59 101 H 18 11/13/20 09:50 101 H 18 11/13/20 08:55 98.0 F 101 H 18 135/64 11/13/20 08:28 84 16 160/72 11/13/20 06:52 77 18 162/90 11/13/20 04:00 98.6 F 85 18 144/90 11/12/20 23:41 78 20 146/83 11/12/20 23:00 80 18 150/82 11/12/20 20:00 78 20 137/87 11/12/20 18:37 74 18 157/84 Pulse Ox 11/13/20 14:02 95 11/13/20 13:59 11/13/20 09:50 11/13/20 08:55 97 11/13/20 08:28 100 11/13/20 06:52 96 03/16/21 04:00 97 11/12/20 23:41 95 11/12/20 23:00 98 11/12/20 20:00 98 11/12/20 18:37 98 Intake and Output 11/13/20 11/13/20 11/13/20 06:59 14:59 22:59 Other: Voiding Method Toilet # Voids 1 Weight 81.647 kg Results CBC & Chem 7: 11/12/20 17:08 11/12/20 17:08 Thrombosis Risk Factor Assmnt - Choose All That Apply Any of the Below Risk Factors Present?: Yes Each Factor Represents 1 point: Obesity (BMI >25) Other Risk Factors: Yes Each Risk Factor Represents 2 Points: Age 61-74 years Other congenital or acquired thrombophilia - If yes, enter type in comment: No Thrombosis Risk Factor Assessment Total Risk Factor Score: 3 Thrombosis Risk Factor Assessment Level: Moderate Risk
--- NOTE | 2020-11-13 18:14 | EEG ---
ELECTROENCEPHALOGRAM REPORT DATE OF SERVICE: 11/13/2020. CLINICAL HISTORY: This is a 65-year-old woman who is having multiple episodes of whole-body shaking. This video EEG is obtained to evaluate for seizure and epileptiform activity. RELEVANT MEDICATION: Keppra. EEG TYPE: A routine 21-channel EEG is performed with video using the 10/20 electrode placement system. DESCRIPTION: Wakefulness and drowsiness are obtained. During wakefulness there is a posterior- dominant rhythm of low to moderate voltage, reactive, well modulated, of 10-11 hertz activity. During drowsiness there is slowing and attenuation of the background activity. There was no physiological stage II sleep. There is no focal slowing seen. There is excessive fast activity throughout the study seen over bilateral hemispheres. Interictal is none. Ictal: At around 16:03 the patient had whole-body and head, nonrhythmic shaking without EEG correlates. The EEG shows myogenic artifact as well as timed locked head movement over the frontal as well as the occipital leads. Immediately after the episode the patient was responding to the icu tech. CLINICAL INTERPRETATION: This is a normal routine EEG. There are no focal slowing, epileptiform discharge or seizure on the EEG. The episode that was captured of whole-body shaking and head shaking is without EEG correlate. The excessive fast activity is likely due to medication effect. Clinical correlation is recommended. MMGLYNN / CURTISN: [id number] / MTDD
--- NOTE | 2020-11-13 18:19 | P.DS ---
Providers Date of admission: 11/13/20 10:13 Expected date of discharge: 11/13/20 Attending physician: Foster Red Consults: 11/12/20 18:28 Consult Physician Routine Consulting Provider: Fer Nguyễn Consult Reason/Comments: suspect seizure Do you want consulting provider notified?: Yes [facility]: Chief Complaint: Shakiness History of presenting complaint: This is a pleasant 65-year-old patient Dr. Cervantes. Chronic stable medical conditions include asthma, hyperlipidemia, hypertension, hypothyroid, ankylosing spondylitis, trigeminal neuralgia in the past. About 3 weeks ago because of the short supply of sulfasalazine she was changeover to leflunomide. Since then she's been noticing various symptoms including having some nausea some heartburn weakness shakiness sometimes a whole body shakes. It is become more frequent the last few days. She states about 15 years ago she trigeminal neuralgia and she was treated with Topamax and Lyrica she possible had seizures that time those medications then discontinued. Patient did state that she notices that when she is trying to sleep that she start shaking more. Did not lose of control of bladder or tongue biting. She does not lose consciousness. Neurology was consulted. Patient is seen by neurologist Dr. Mondragon. He did review the EEG. No seizure activity. He discontinued the Keppra that was started. He wants the patient to follow-up as an outpatient for long-term EEG. Patient to follow up with outpatient neurology. Rn Lactation Consultant: Dr. Mondragon from neurology Past medical history to include: Asthma, hypertension, hyperlipidemia, seizure disorder, hypothyroid, ankylosing spondylitis, trigeminal neuralgia Social history: . Anxiety due to her physical problems. Does not drive anymore. No smoking. Alcohol occasionally. Physical examination: VITAL SIGNS: 97.5, 76, 18, 146.57, 95% on room air GENERAL: BMI 29.1, laying in bed, awake tired. EYES: Pupils equal. Conjunctiva normal. HEENT: External appearance of nose and ears normal, oral cavity grossly normal. NECK: JVD not raised; masses not palpable. HEART: First and second heart sounds are normal; no edema. LUNGS: Respiratory rate normal; clear to auscultation. ABDOMEN: Soft, nontender, liver spleen not palpable, no masses palpable. PSYCH: [Alert and oriented x3; mood and affect slightly anxious l. INVESTIGATIONS, reviewed in the clinical context: EEG-[formal report pending]-negative as per Dr. funes WBC 9.8 hemoglobin 16 platelets 240 potassium 4.6 creatinine 0.99 TSH 1.2 potassium 10.1 and magnesium 1.9 Coronavirus [PCL]-not detected EKG tracing personally reviewed by me-normal sinus rhythm Computed tomography scan of the brain without contrast-negative Assessment and plan: -This is a patient who presents with what she described as generalized body shaking since she started on Leflunamide about 3 weeks ago. At that also associ ated symptoms of nausea heartburn feeling weak. Patient been rather anxious. Patient does state having possible seizures over 15 years ago when treated with Topamax and that a cuff for her trigeminal neuralgia. No seizure activity noted in the EEG. Could be a side effect of medications. Keppra discontinued -Mild persistent asthma ; use albuterol when necessary. And also to useBrezti-inhaler -Hyperlipidemia, continue Mevacor -Essential hypertension, continue with Toprol-XL and Norvasc -Hypothyroid continue with Synthroid Disposition: Home Plan - Discharge Summary Discharge Rx Participant: No New Discharge Prescriptions: Continue Spironolactone 50 mg PO QAM Metoprolol Succinate (ER) [Toprol XL] 100 mg PO DAILY Lovastatin [Mevacor] 20 mg PO HS Levothyroxine Sodium [Synthroid] 88 mcg PO DAILY Albuterol Sulfate [Ventolin HFA] 2 puff INHALATION RT-Q6H PRN PRN Reason: Shortness Of Breath amLODIPine [Norvasc] 10 mg PO DAILY Etanercept [Enbrel] 50 mg SQ FR Meloxicam [Mobic] 15 mg PO DAILY PRN PRN Reason: Pain diazePAM [Valium] 5 mg PO Q8HR PRN 3 Days #9 tab PRN Reason: Seizures Budesonide/Glycopyr/Formoterol [Breztri Aerosphere Inhaler] 2 puff INHALATION RT-BID Cholestyramine (with Sugar) [Cholestyramine Packet] 8 gm PO TID Rizatriptan Benzoate [Rizatriptan] 10 mg PO DAILY PRN PRN Reason: Migraine Headache Discharge Medication List Levothyroxine Sodium [Synthroid] 88 mcg PO DAILY 06/05/15 [History] Lovastatin [Mevacor] 20 mg PO HS 06/05/15 [History] Metoprolol Succinate (ER) [Toprol XL] 100 mg PO DAILY 06/05/15 [History] Spironolactone 50 mg PO QAM 06/05/15 [History] Albuterol Sulfate [Ventolin HFA] 2 puff INHALATION RT-Q6H PRN 03/16/20 [History] Etanercept [Enbrel] 50 mg SQ FR 03/16/20 [History] Meloxicam [Mobic] 15 mg PO DAILY PRN 03/16/20 [History] amLODIPine [Norvasc] 10 mg PO DAILY 03/16/20 [History] Budesonide/Glycopyr/Formoterol [Breztri Aerosphere Inhaler] 2 puff INHALATION RT-BID 11/12/20 [History] Cholestyramine (with Sugar) [Cholestyramine Packet] 8 gm PO TID 11/12/20 [History] Rizatriptan Benzoate [Rizatriptan] 10 mg PO DAILY PRN 11/12/20 [History] diazePAM [Valium] 5 mg PO Q8HR PRN 3 Days #9 tab 11/12/20 [Rx] Follow up Appointment(s)/Referral(s): Adonay Cervantes MD [Primary Care Provider] - 1-2 days Alexa Hansen MD [Medical Doctor] - 1 Week
[2020-11-13] MEDS ORDERED: ATORVASTATIN 10 MG TAB PO SCH (21:00)
[2020-11-16] MEDS ORDERED: NON FORMULARY DRUG (Etanercept [Enbrel] 50 MG/ML Syringe) SQ SCH (09:00)
== END 2020-11-13 18:40 | disposition home or self-care (01) ==
LOC: EC 16:24 → 6NMEDSUR 18:28 → INTOOBSV 11-13 10:13 → OBSVTOIN 11-13 10:13 → UNDODISIN 11-13 18:40
PROVIDERS: ADMIT Hospitalist; ATTEND Hospitalist
DX: R25.8 Other abnormal involuntary movements (principal); T39.4X5A Adverse effect of antirheumatics, not elsewhere classified, initial encounter; M45.9 Ankylosing spondylitis of unspecified sites in spine; G50.0 Trigeminal neuralgia; I10 Essential (primary) hypertension; E78.5 Hyperlipidemia, unspecified; E03.9 Hypothyroidism, unspecified; F06.4 Anxiety disorder due to known physiological condition; G43.909 Migraine, unspecified, not intractable, without status migrainosus; J45.30 Mild persistent asthma, uncomplicated; R11.0 Nausea; R53.1 Weakness; G47.00 Insomnia, unspecified; R12 Heartburn; E66.9 Obesity, unspecified; Z68.29 Body mass index [BMI] 29.0-29.9, adult; Z20.822 Contact with and (suspected) exposure to COVID-19; Z79.1 Long term (current) use of non-steroidal anti-inflammatories (NSAID); Z79.890 Hormone replacement therapy; Z79.899 Other long term (current) drug therapy; Z79.51 Long term (current) use of inhaled steroids; Z88.8 Allergy status to other drugs, medicaments and biological substances; Z91.018 Allergy to other foods; Z87.19 Personal history of other diseases of the digestive system; Z82.5 Family history of asthma and other chronic lower respiratory diseases; Z82.49 Family history of ischemic heart disease and other diseases of the circulatory system
CPT/HCPCS: 96376; 96374; 99284; 99285; 36415; 95816; 93005; 80053; 80048; 84443; 83735; 85025; 81003; 80320; 87635; 70450; G0378 ×2; J2060; 96361